=== PATIENT | female | born 1995 | race American Indian/Alaskan Native ===

== ENCOUNTER 2019-01-16 02:42 | Emergency (ER) | payer OTHER ==
[2019-01-16] MEDS ORDERED: IBUPROFEN 800 MG TAB PO ONE (08:10)
[2019-01-16] MEDS ORDERED: valACYclovir 500 MG TAB PO ONE (08:10)
[2019-01-16 08:39] VITALS: BP 128/70
--- NOTE | 2019-01-16 08:50 | Emergency Department Report ---
ED Rash HPI - HPI Chief Complaint: Urogenital-Female Stated Complaint: POSS RASH Time Seen by Provider: 01/16/19 07:26 Duration: 2 Days Suspected Cause: Other Rash Symptoms: No Itching, No Facial Swelling, No Tongue/Oral Swelling, No Breathing Difficulties, No Choking Sensation, No Wheezing/Dyspnea, No Peeling, No Blistering, No Fever, No Lightheaded, No Malaise, No Myalgias Severity: moderate Other History: Patient is a 23-year-old female who presents ED complaining of the burning type lesion around her rectum the past 2-3 days. Patient denies vaginal discharge, abdominal pelvic pain, nausea vomiting. Patient states she noticed lesions about 2 days ago. Patient states he planned to touch to lesions. She denies any bleeding from that it area. She admits sexual intercourse last week. ED Review of Systems ROS: Stated complaint: POSS RASH Other details as noted in HPI Comment: All other systems reviewed and negative ED Past Medical Hx - Past Medical History Previous Medical History?: Yes Hx Asthma: Yes - Surgical History Past Surgical History?: No - Social History Smoking Status: Never Smoker Substance Use Type: Alcohol - Medications Home Medications: Home Medications Medication Instructions Recorded Confirmed Last Taken Type ALBUTEROL NEB's [Proventil 0.083% 2.5 mg IH Q4H PRN #25 neb 03/08/14 Unknown Rx NEBS] Diclofenac Dr [Voltaren Dr] 75 mg PO Q12H #20 tablet 03/08/14 Unknown Rx HYDROcodone/APAP 10-325 [[place] 1 each PO Q6HR PRN #12 tablet 03/08/14 Unknown Rx 10-325 mg TAB] Acyclovir [Acyclovir Ointment] 1 applicatio TP 5XD #1 tube 01/16/19 Unknown Rx Ibuprofen [Motrin 800 MG tab] 800 mg PO TID #30 tablet 01/16/19 Unknown Rx valACYclovir [Valtrex] 500 mg PO TID #30 tablet 01/16/19 Unknown Rx Rash Exam - Exam General: Vital signs noted. No distress. Alert and acting appropriately. HEENT: No Periorbital Edema, No Conjuctival Injection, No Chemosis, No Perioral Edema, No Tongue Edema, No Uvular Edema, No Compromised Airway, No Drooling Lungs: Yes Good Air Exchange (Normal Breath Sounds), No Wheezes, No Ronchi, No Stridor, No Cough, No Labored Respirations, No Retractions, No Use of Accessory Muscles, No Other Abnormal Lung Sounds Heart: Yes Regular, No Murmur Skin: Yes Maculopapular Rash, Yes Tenderness, Yes Other (herpetic-like generalize multiple lesions around rectum and labia), No Urticarial Rash, No Morbilliform rash, No Bulla(e), No Excoriations, No Weeping, No Erythema, No Edema, No Encrustations Other: Positive: Abdomen Normal, Neurologic Normal, Musculoskeletal Normal ED Course Vital Signs 01/16/19 01/16/19 02:47 08:34 Temperature 98.7 F 98.6 F Pulse Rate 68 78 Respiratory 18 13 Rate Blood Pressure 103/54 128/70 O2 Sat by Pulse 98 100 Oximetry ED Medical Decision Making - Medical Decision Making 23-year-old female presents with anogenital lesion consistent with herpes simplex virus. Discussed findings with the patient. Discussed the patient to follow-up with [facility] for testing and other STD testing. Vital signs are normal she is in no acute distress. Patient states she understands instructions. Critical care attestation.: If time is entered above; I have spent that time in minutes in the direct care of this critically ill patient, excluding procedure time. ED Disposition Clinical Impression: Herpes simplex of female genitalia, Lesion of perianal area Disposition: - TO HOME OR SELFCARE Is pt being admited?: No Does the pt Need Aspirin: No Condition: Stable Instructions: Genital Herpes Simplex (ED) Additional Instructions: Make sure to follow up with the primary care physician as discussed. Follow-up with [facility] for further STD screening Take all your medications as you've been prescribed. If you have any worsening symptoms or develop new symptoms please return to ED immediately. Prescriptions: Acyclovir [Acyclovir Ointment] 1 applicatio TP 5XD #1 tube Ibuprofen [Motrin 800 MG tab] 800 mg PO TID #30 tablet valACYclovir [Valtrex] 500 mg PO TID #30 tablet Referrals: PRIMARY CARE, [Primary Care Provider] - 3-5 Days [facility] [Outside] - 3-5 Days [facility] [Outside] - 3-5 Days Forms: Work/School Release Form(ED) Time of Disposition: 09:00
== END 2019-01-16 09:11 | disposition home or self-care (01) ==
LOC: ED 02:42
DX: A60.00 Herpesviral infection of urogenital system, unspecified (principal); K62.89 Other specified diseases of anus and rectum; J45.909 Unspecified asthma, uncomplicated; Z79.899 Other long term (current) drug therapy
CPT/HCPCS: 99282

== ENCOUNTER 2020-09-16 21:41 | Emergency (ER) | payer SELFPAY ==
[2020-09-16] MEDS ORDERED: HYDROcodone/ACETAMINOPHEN 5-325 MG TAB PO ONE (22:41)
[2020-09-16 22:47] VITALS: BP 124/61
[2020-09-16 23:32] LABS: Basophils # (Auto) 0.1 K/mm3 (0.0-0.1); Basophils % (Auto) 0.7 % (0.0-1.8); Eosinophils # (Auto) 0.1 K/mm3 (0.0-0.4); Eosinophils % (Auto) 0.6 % (0.0-4.3); Hematocrit 33.1 % (30.3-42.9); Hemoglobin 11.2 gm/dl (10.1-14.3); Lymphocytes # (Auto) 2.1 K/mm3 (1.2-5.4); Lymphocytes % (Auto) 18.9 % (13.4-35.0); Mean Corpuscular HGB Conc 34 % (30-34); Mean Corpuscular Volume 86 fl (79-97); Monocytes # (Auto) 0.7 K/mm3 (0.0-0.8); Monocytes % (Auto) 6.2 % (0.0-7.3); Platelet Count 349 K/mm3 (140-440); Red Blood Count 3.87 M/mm3 (3.65-5.03); Red Cell Distribution Width 16.4 % (13.2-15.2)
[2020-09-16 23:54] LABS: Blood Urea Nitrogen 8 mg/dL (7-17); Calcium 9.7 mg/dL (8.4-10.2); Hemolysis Index 0
[2020-09-16 23:55] LABS: BUN/Creatinine Ratio 13
[2020-09-17] MEDS ORDERED: dexAMETHasone 4 MG/ML VIAL PO ONE (01:17)
[2020-09-17] MEDS ORDERED: PENICILLIN G BENZATHINE 1.2 MILLION UNIT/2 ML INJ IM STA (01:17)
--- NOTE | 2020-09-17 01:59 | Emergency Department Report ---
ED ENT HPI - General Chief complaint: Sore Throat Stated complaint: THROAT SWOLLEN Time Seen by Provider: 09/17/20 00:30 Source: patient Mode of arrival: Ambulatory Limitations: No Limitations - History of Present Illness Initial comments: Obese -[place] female that emerge department complaining of a few day history of progressively worsening sore throat at the start on the left side of her throat and then transition of to the right side. Patient states she was out of town staying in a [place] and fell asleep with her mouth open while the fan was on and when she woke up had significant amount of pain to the throat which is continued to progress since the onset. Pain is dull and throbbing and is worse with eating and drinking. MD complaint: sore throat -: Gradual Location: throat Severity: moderate Quality: dull Consistency: constant Improves with: none Worsens with: swallowing Associated Symptoms: sore throat - Related Data Previous Rx's Medication Instructions Recorded Last Taken Type ALBUTEROL NEB's [Proventil 0.083% 2.5 mg IH Q4H PRN #25 neb 03/08/14 Unknown Rx NEBS] Diclofenac Dr [Voltarejoey Dr] 75 mg PO Q12H #20 tablet 03/08/14 Unknown Rx HYDROcodone/APAP 10-325 [[place] 1 each PO Q6HR PRN #12 tablet 03/08/14 Unknown Rx 10-325 mg TAB] Acyclovir [Acyclovir Ointment] 1 applicatio TP 5XD #1 tube 01/16/19 Unknown Rx Ibuprofen [Motrin 800 MG tab] 800 mg PO TID #30 tablet 01/16/19 Unknown Rx valACYclovir [Valtrex] 500 mg PO TID #30 tablet 01/16/19 Unknown Rx Lidocaine Viscous 2% 5 ml MM Q4HR PRN #120 udc 09/17/20 Unknown Rx Allergies Allergy/AdvReac Type Severity Reaction Status Date / Time No Known Allergies Allergy Verified 09/16/20 22:44 ED Dental HPI - General Chief complaint: Sore Throat Stated complaint: THROAT SWOLLEN Time Seen by Provider: 09/17/20 00:30 Source: patient Mode of arrival: Ambulatory Limitations: No Limitations - Related Data Previous Rx's Medication Instructions Recorded Last Taken Type ALBUTEROL NEB's [Proventil 0.083% 2.5 mg IH Q4H PRN #25 neb 03/08/14 Unknown Rx NEBS] Diclofenac [Emmett Lu] 75 mg PO Q12H #20 tablet 03/08/14 Unknown Rx HYDROcodone/APAP 10-325 [[place] 1 each PO Q6HR PRN #12 tablet 03/08/14 Unknown Rx 10-325 mg TAB] Acyclovir [Acyclovir Ointment] 1 applicatio TP 5XD #1 tube 01/16/19 Unknown Rx Ibuprofen [Motrin 800 MG tab] 800 mg PO TID #30 tablet 01/16/19 Unknown Rx valACYclovir [Valtrex] 500 mg PO TID #30 tablet 01/16/19 Unknown Rx Lidocaine Viscous 2% 5 ml MM Q4HR PRN #120 udc 09/17/20 Unknown Rx Allergies Allergy/AdvReac Type Severity Reaction Status Date / Time No Known Allergies Allergy Verified 09/16/20 22:44 ED Review of Systems ROS: Stated complaint: THROAT SWOLLEN Other details as noted in HPI Comment: All other systems reviewed and negative ED Past Medical Hx - Past Medical History Hx Asthma: Yes - Surgical History Past Surgical History?: No - Social History Smoking Status: Never Smoker - Medications Home Medications: Home Medications Medication Instructions Recorded Confirmed Last Taken Type ALBUTEROL NEB's [Proventil 0.083% 2.5 mg IH Q4H PRN #25 neb 03/08/14 Unknown Rx NEBS] Diclofenac [Emmett Lu] 75 mg PO Q12H #20 tablet 03/08/14 Unknown Rx HYDROcodone/APAP 10-325 [[place] 1 each PO Q6HR PRN #12 tablet 03/08/14 Unknown Rx 10-325 mg TAB] Acyclovir [Acyclovir Ointment] 1 applicatio TP 5XD #1 tube 01/16/19 Unknown Rx Ibuprofen [Motrin 800 MG tab] 800 mg PO TID #30 tablet 01/16/19 Unknown Rx valACYclovir [Valtrex] 500 mg PO TID #30 tablet 01/16/19 Unknown Rx Lidocaine Viscous 2% 5 ml MM Q4HR PRN #120 udc 09/17/20 Unknown Rx ED Physical Exam - General Limitations: No Limitations General appearance: alert, in no apparent distress - Head Head exam: Present: atraumatic, normocephalic - Eye Eye exam: Present: normal appearance, PERRL, EOMI Pupils: Present: normal accommodation - ENT ENT exam: Present: normal exam, mucous membranes moist, other (Pharynx red swollen with exudate noted. Airway is still patent. Right right tonsillar lymphadenopathy is noted no drooling) - Neck Neck exam: Present: normal inspection - Respiratory Respiratory exam: Present: normal lung sounds bilaterally. Absent: respiratory distress - Cardiovascular Cardiovascular Exam: Present: regular rate, normal rhythm. Absent: systolic murmur, diastolic murmur, rubs, gallop - GI/Abdominal GI/Abdominal exam: Present: soft, normal bowel sounds - Extremities Exam Extremities exam: Present: normal inspection - Back Exam Back exam: Present: normal inspection - Neurological Exam Neurological exam: Present: alert, oriented X3 - Psychiatric Psychiatric exam: Present: normal affect, normal mood - Skin Skin exam: Present: warm, dry, intact, normal color. Absent: rash ED Course Vital Signs 09/16/20 22:45 Temperature 99.8 F H Pulse Rate 85 Respiratory 18 Rate Blood Pressure 124/61 O2 Sat by Pulse 98 Oximetry ED Medical Decision Making - Lab Data Result diagrams: 09/16/20 22:58 09/16/20 22:58 - Medical Decision Making 25 with no history of any compromised nontoxic appearance patient is euvolemic with no trismus no airway compromise unable to tolerate p.o. given history and examination low suspicion for this presentation being caused by peritonsillar abscess, Nico, bacterial tracheitis, acute HIV, epiglottitis, retropharyngeal abscess. Critical care attestation.: If time is entered above; I have spent that time in minutes in the direct care of this critically ill patient, excluding procedure time. ED Disposition Clinical Impression: Exudative pharyngitis Disposition: DC- TO HOME OR SELFCARE Is pt being admited?: No Does the pt Need Aspirin: No Condition: Stable Instructions: Strep Throat, Adult, Pharyngitis, Sore Throat, [id number] Prescriptions: Lidocaine Viscous 2% 5 ml MM Q4HR PRN #120 udc PRN Reason: Throat Pain Referrals: PRIMARY CARE,MD [Primary Care Provider] - 3-5 Days [facility] [Provider Group] - 3-5 Days
== END 2020-09-17 02:22 | disposition home or self-care (01) ==
LOC: ED 21:41
DX: J02.9 Acute pharyngitis, unspecified (principal); J45.909 Unspecified asthma, uncomplicated; Z79.899 Other long term (current) drug therapy
CPT/HCPCS: 36415; 80048; 85025; 96372; 99283; J0561; J1100